=== PATIENT | female | born 1995 | race Two or more races ===

== ENCOUNTER → 2020-07-04 08:47 | Outpatient (BNVA) | payer MEDICARE, MEDICAID, SELFPAY | PROVIDERS: PCP Internal Medicine; Referring Provider Internal Medicine; Visit Provider Internal Medicine Endocrinology, Diabetes & Metabolism | DX: E28.2 Polycystic ovarian syndrome (principal); E53.8 Deficiency of other specified B group vitamins; E55.9 Vitamin D deficiency, unspecified; E66.9 Obesity, unspecified; Z68.33 Body mass index [BMI] 33.0-33.9, adult; Z79.899 Other long term (current) drug therapy; Q99.2 Fragile X chromosome | CPT/HCPCS: 99214 ==

== ENCOUNTER 2020-07-29 08:58 | Outpatient (REF) | payer MEDICARE, MEDICAID, SELFPAY ==
[2020-07-29 10:03] LABS: Anion Gap 12 (12-20); Blood Urea Nitrogen 8 mg/dL (9-16); Calcium 8.7 mg/dL (8.4-10.2); Carbon Dioxide 23 mmol/L (22-29); Chloride 107 mmol/L (96-108); Estimated Glomerular Filt Rate > 60; Phosphorus 2.9 mg/dL (2.7-4.5); Potassium 4.1 mmol/l (3.3-5.1); Sodium 138 mmol/L (135-145)
[2020-07-29 10:19] LABS: Alanine Aminotransferase 8 U/L (0-31); Albumin Level 3.9 g/dL (3.5-5.0); Alkaline Phosphatase 52 U/L (39-117); Anion Gap 13 (12-20); Aspartate Amino Transferase 16 U/L (5-31); Bilirubin Total 0.4 mg/dL (0.0-1.0); Blood Urea Nitrogen 8 mg/dL (9-16); Calcium 8.7 mg/dL (8.4-10.2); Carbon Dioxide 23 mmol/L (22-29); Chloride 107 mmol/L (96-108); Estimated Glomerular Filt Rate > 60; Glucose Random 77 mg/dL (60-115); Potassium 4.2 mmol/l (3.3-5.1); Sodium 139 mmol/L (135-145); Total Protein 6.9 g/dL (6.5-8.0)
[2020-07-29 10:25] LABS: Vitamin D 25-OH Total 22.3 ng/mL (>30)
[2020-07-29 10:34] LABS: Vitamin B12 456 pg/mL (200-900)
[2020-07-29 14:25] LABS: Renal w Reflex Lab Use Only Order verified
== END 2020-07-29 08:59 | disposition home or self-care (01) ==
LOC: HO.LAB 08:58
PROVIDERS: PCP Internal Medicine; Referring Provider Internal Medicine Endocrinology, Diabetes & Metabolism; Visit Provider Internal Medicine Nephrology
DX: E53.8 Deficiency of other specified B group vitamins (principal); E55.9 Vitamin D deficiency, unspecified; E28.2 Polycystic ovarian syndrome; E87.1 Hypo-osmolality and hyponatremia; E66.9 Obesity, unspecified; Q99.2 Fragile X chromosome
CPT/HCPCS: 80051; 80053; 82306; 82310; 82565; 82607; 84100; 84520

== ENCOUNTER 2020-09-27 07:29 | Outpatient (REF) | payer MEDICARE, MEDICAID, SELFPAY | END 2020-09-27 07:30 | disposition home or self-care (01) | LOC: HO.LAB 07:29 | PROVIDERS: Visit Provider Internal Medicine | DX: Z20.828 Contact with and (suspected) exposure to other viral communicable diseases (principal) | CPT/HCPCS: C9803; U0003 ==

== ENCOUNTER → 2021-01-02 09:47 | Outpatient (BNVA) | payer MEDICARE, MEDICAID, SELFPAY | PROVIDERS: PCP Internal Medicine; Visit Provider Internal Medicine Endocrinology, Diabetes & Metabolism | CPT/HCPCS: Q3014 ==

== ENCOUNTER 2021-03-31 09:20 | Outpatient (REF) | payer MEDICARE, MEDICAID, SELFPAY ==
[2021-03-31 10:14] LABS: Ammonia 41 umol/L (13-55)
[2021-03-31 10:31] LABS: Alanine Aminotransferase 6 U/L (0-31); Albumin Level 3.9 g/dL (3.5-5.0); Alkaline Phosphatase 61 U/L (39-117); Aspartate Amino Transferase 14 U/L (5-31); Bilirubin Direct < 0.2 mg/dL (0.0-0.5); Bilirubin Total 0.4 mg/dL (0.0-1.0); Total Protein 7.2 g/dL (6.5-8.0)
[2021-03-31 10:38] LABS: Valproate 94.8 mcg/mL (50.0-100.0)
[2021-03-31 10:52] LABS: Vitamin D 25-OH Total 32.8 ng/mL (>30)
[2021-03-31 11:00] LABS: Vitamin B12 255 pg/mL (200-900)
[2021-03-31 11:09] LABS: Alanine Aminotransferase 7 U/L (0-31); Albumin Level 3.9 g/dL (3.5-5.0); Alkaline Phosphatase 61 U/L (39-117); Anion Gap 18 (12-20); Aspartate Amino Transferase 16 U/L (5-31); Bilirubin Total 0.4 mg/dL (0.0-1.0); Blood Urea Nitrogen 12 mg/dL (9-16); Calcium 9.3 mg/dL (8.4-10.2); Carbon Dioxide 17 mmol/L (22-29); Chloride 107 mmol/L (96-108); Estimated Glomerular Filt Rate > 60; Glucose Fasting 82 mg/dL (60-99); Potassium 4.5 mmol/L (3.3-5.1); Sodium 137 mmol/L (135-145); Total Protein 7.3 g/dL (6.5-8.0)
== END 2021-03-31 09:21 | disposition home or self-care (01) ==
LOC: HO.LAB 09:20
PROVIDERS: Absent Provider General Practice; PCP Internal Medicine; Visit Provider Internal Medicine Endocrinology, Diabetes & Metabolism
DX: E53.8 Deficiency of other specified B group vitamins (principal); E28.2 Polycystic ovarian syndrome; E55.9 Vitamin D deficiency, unspecified; Z79.899 Other long term (current) drug therapy
CPT/HCPCS: 36415; 80053; 80076; 80164; 82140; 82248; 82306; 82607

== ENCOUNTER 2021-05-30 09:18 | Outpatient (REF) | payer MEDICARE, MEDICAID, SELFPAY ==
--- NOTE | ~2021-05-30 | XR_ITS ---
EXAMINATION: XR FOOT, BILATERAL CLINICAL INFORMATION: Localized edema. COMPARISON: None. TECHNIQUE: 3 views each foot. FINDINGS: Right Foot: There is no visible acute fracture, dislocation or subluxation. The joint spaces are maintained normal. Minimal dorsal distal foot soft tissue swelling The ankle mortise and subtalar joint is normal. A small retrocalcaneal enthesophyte is noted. Left Foot: There is no visible acute fracture, dislocation or subluxation. No bony erosive changes. There is moderate distal dorsal foot soft tissue swelling. XR/XR foot RT 2V IMPRESSION: Minimal dorsal distal bilateral foot soft tissue swelling. No underlying fracture or dislocation seen.
--- NOTE | ~2021-05-30 | XR_ITS ---
EXAMINATION: XR FOOT, BILATERAL CLINICAL INFORMATION: Localized edema. COMPARISON: None. TECHNIQUE: 3 views each foot. FINDINGS: Right Foot: There is no visible acute fracture, dislocation or subluxation. The joint spaces are maintained normal. Minimal dorsal distal foot soft tissue swelling The ankle mortise and subtalar joint is normal. A small retrocalcaneal enthesophyte is noted. Left Foot: There is no visible acute fracture, dislocation or subluxation. No bony erosive changes. There is moderate distal dorsal foot soft tissue swelling. XR/XR foot LT 2V IMPRESSION: Minimal dorsal distal bilateral foot soft tissue swelling. No underlying fracture or dislocation seen.
== END 2021-05-30 09:19 | disposition home or self-care (01) ==
LOC: HO.XRAY 09:18
PROVIDERS: PCP Internal Medicine; Visit Provider Internal Medicine
DX: R60.0 Localized edema (principal)
CPT/HCPCS: 73620

== ENCOUNTER → 2022-01-05 10:03 | Outpatient (BNVA) | payer MEDICARE, MEDICAID, SELFPAY | PROVIDERS: PCP Internal Medicine; Visit Provider Internal Medicine Endocrinology, Diabetes & Metabolism | DX: E28.2 Polycystic ovarian syndrome (principal); E53.8 Deficiency of other specified B group vitamins; E55.9 Vitamin D deficiency, unspecified; E66.9 Obesity, unspecified; Q99.2 Fragile X chromosome; Z68.36 Body mass index [BMI] 36.0-36.9, adult; Z79.84 Long term (current) use of oral hypoglycemic drugs; Z79.899 Other long term (current) drug therapy | CPT/HCPCS: 99212 ==

== ENCOUNTER 2022-02-01 11:52 | Outpatient (REF) | payer MEDICARE, MEDICAID, SELFPAY ==
[2022-02-01 13:40] LABS: Cholesterol 226 mg/dL; Glucose Fasting 66 mg/dL (60-99); HDL Cholesterol 38 mg/dL; LDL Cholesterol Calculated 152 mg/dl; Triglycerides 184 mg/dL
== END 2022-02-01 11:53 | disposition home or self-care (01) ==
LOC: HO.10HDL 11:52
PROVIDERS: Visit Provider Nurse Practitioner Family
DX: E78.00 Pure hypercholesterolemia, unspecified (principal); R21 Rash and other nonspecific skin eruption
CPT/HCPCS: 36415; 80061; 82947

== ENCOUNTER 2022-05-27 08:37 | Outpatient (REF) | payer MEDICARE, MEDICAID, SELFPAY ==
[2022-05-27 08:59] LABS: MANUAL DIFF FLAG NO
[2022-05-27 09:55] LABS: Basophils Absolute Auto 0.1 X10*3/uL (0.0-0.2); Basophils Percent Auto 0.8 % (0-2); Eosinophils Absolute Auto 0.2 X10*3/uL (0.0-0.4); Eosinophils Percent Auto 2.6 % (0-4); Hematocrit 41.8 % (37.0-47.0); Imm Gran Abs Auto 0.03 X10*3/uL (0.00-0.03); Imm Gran Pct Auto 0.4 % (0.0-0.4); Lymphocytes Absolute Auto 2.3 X10*3/uL (1.2-4.9); Lymphocytes Percent Auto 29.7 % (20-40); Mean Corpuscular HGB Conc 31.1 g/dl (31.0-35.0); Mean Corpuscular Hemoglobin 28.2 pg (27.0-33.0); Mean Corpuscular Volume 90.7 fL (80.0-98.0); Mean Platelet Volume 9.6 fL (9.4-12.3); Monocytes Absolute Auto 0.6 X10*3/uL (0.1-1.2); Monocytes Percent Auto 7.3 % (2-11); Neutrophils Absolute Auto 4.5 x10*3/uL (2.0-8.3); Neutrophils Percent Auto 59.2 % (45-73); Platelet Count 184 X10*3/uL (160-400); Red Blood Count 4.61 X10*6/uL (4.20-5.50); Red Cell Distribution Width 13.6 % (11.0-16.0); White Blood Count 7.7 X10*3/uL (4.8-10.8)
[2022-05-27 10:48] LABS: Vitamin D 25-OH Total 20.6 ng/mL (>30)
[2022-05-27 10:52] LABS: Alanine Aminotransferase 8 U/L (0-31); Albumin Level 3.6 g/dL (3.5-5.0); Alkaline Phosphatase 59 U/L (39-117); Anion Gap 15 (12-20); Aspartate Amino Transferase 17 U/L (5-31); Bilirubin Total < 0.2 mg/dL (0.0-1.0); Blood Urea Nitrogen 10 mg/dL (9-16); Calcium 8.9 mg/dL (8.4-10.2); Carbon Dioxide 22 mmol/L (22-29); Chloride 108 mmol/L (96-108); Cholesterol 148 mg/dL; Estimated Glomerular Filt Rate > 60; Glucose Fasting 85 mg/dL (60-99); HDL Cholesterol 40 mg/dL; LDL Cholesterol Calculated 77 mg/dl; Potassium 3.9 mmol/L (3.3-5.1); Sodium 141 mmol/L (135-145); Total Protein 6.4 g/dL (6.5-8.0); Triglycerides 158 mg/dL
[2022-05-27 11:00] LABS: Folate 7.5 ng/mL (> or = 4.0); Vitamin B12 455 pg/mL (200-900)
[2022-06-01 12:56] LABS: NT-proBNP 443 pg/mL
== END 2022-05-27 08:38 | disposition home or self-care (01) ==
LOC: HO.LAB 08:37
PROVIDERS: PCP Internal Medicine; Visit Provider Internal Medicine
DX: E66.9 Obesity, unspecified (principal); E55.9 Vitamin D deficiency, unspecified; E53.8 Deficiency of other specified B group vitamins; R60.0 Localized edema; E78.5 Hyperlipidemia, unspecified; D64.9 Anemia, unspecified
CPT/HCPCS: 36415; 80053; 80061; 82306; 82607; 82746; 83880; 85025

== ENCOUNTER → 2022-08-25 12:50 | Outpatient (BNVA) | payer MEDICARE, MEDICAID, SELFPAY | PROVIDERS: PCP Internal Medicine; Referring Provider Internal Medicine; Visit Provider Internal Medicine | DX: R79.89 Other specified abnormal findings of blood chemistry (principal) | CPT/HCPCS: 93005; 99202 ==

== ENCOUNTER → 2022-09-01 09:24 | Outpatient (REF) | payer MEDICARE, MEDICAID, SELFPAY ==
--- NOTE | 2022-09-01 09:33 | CA_ITS ---
Transthoracic Echocardiogram Patient (Last, First, Middle): Catie Encarnacion, Gender: Female Date of : 1995 Age: 27 Procedure Date: 09/01/2022 Procedure Type: Transthoracic Echocardiogram Location: OP Height: 154.94 cm Weight: 90.72 kg BSA: 1.89 m2 Heart Rate: bpm BP: 110 / 75 mmHg Racing Secretary: TO Referring MD: Ramos Marino MD Accuracy Expert: Pawel La MD Symptoms: R79.89 - Other specified abnormal findings of blood chemistry Study Quality: Technically Difficult ECG Rhythm: Sinus Conclusions: - Essentially normal study Findings Left Ventricle Normal left ventricular size, thickness, and systolic function. The visually estimated ejection fraction is between 60-65%. Regional wall motion abnormalities can not be excluded due to suboptimal endocardial definition. Diastolic function is normal for age. Right Ventricle Normal right ventricular cavity size and systolic function. Atria Both atria are normal in size. Interatrial shunt cannot be excluded. Aortic Valve The aortic valve was not well visualized. There is no aortic valve stenosis. There is no aortic valve regurgitation. Mitral Valve Likely normal mitral valve structure and function. There is trace mitral valve regurgitation. There is no mitral valve stenosis. Pulmonic Valve The pulmonic valve was not well visualized. Tricuspid Valve Likely normal tricuspid valve structure and function. There is trace tricuspid valve regurgitation. The right ventricular systolic pressure is normal. The right ventricular systolic pressure is 22 mmHg. Normal right atrial pressure. There is no evidence of pulmonary hypertension. Great Vessels All visible segments of the aorta are normal in size. The pulmonary artery was not well visualized. Venous The inferior vena cava is normal in size and collapses greater than 50% with inspiration. Pericardium/Pleural There is no evidence of pericardial effusion. Prior Study Comparison No previous study in last 5 years for comparison Measurements 2D Linear Measurements IVSd: 0.91 0.6-0.9/0.6-1.0 cm LVIDd: 4.47 3.9-5.3/4.2-5.9 cm LVIDd Index: 2.37 2.4-3.2/2.2-3.1 cm/m2 LVIDs: 2.98 2.0-3.6 cm LVPWd: 0.68 0.7-1.1 cm LA Diam: 2.90 2.7-3.8/3.0-4.0 cm LAIDs Index: 1.53 1.5-2.3 cm/m2 LV Mass: 138.56 67-162/88-224 g LV Mass Index: 73.31 43-95/49-115 g/m2 LVOT Diam: 2.00 3.0+(-)1.3 cm 2D Systolic Function EF 4C: 61.40 >55% EF 2C: 58.60 >55% EF BiP: 60.10 >55% Mitral Valve E'Lateral: 17.60 E'Medial: 13.20 Aortic Valve AoV Pk Bret: 1.23 AoV Mn Bret: 0.87 AoV VTI: 0.26 AoV Pk Grad: 6.00 Aov Mn Grad: 3.00 KINZA Cont.VTI: 2.44 LVOT LVOT Pk Bret: 0.95 LVOT Mn Bret: 0.71 LVOT VTI: 0.20 LVOT Pk Grad: 4.00 LVOT Mn Grad: 2.00 LVOT Diam: 2.00 LVOT Area: 3.14 Diastolic Function E'Medial: 13.20 E' Laterial: 17.60 Right Ventricle TAPSE (mm): 18.00 TVS' Bret: 10.80 Tricuspid Valve TR Pk Bret: 2.19 TR Pk Grad: 19.00 RA Press: 3.00 RVSP: 22.00 Great Vessels Aorta Sinus of Valsalva: 3.09 2.0-3.5 cm Ao Asc: 3.00 2.1-3.4 cm Updated in Other Vendor System with Status of Final Pawel La MD electronically signed on 09/03/2022 6:43:00 PM with status of Final
[2022-09-01 11:15] LABS: Alanine Aminotransferase 12 U/L (0-31); Albumin Level 3.9 g/dL (3.5-5.0); Alkaline Phosphatase 74 U/L (39-117); Aspartate Amino Transferase 17 U/L (5-31); Bilirubin Direct < 0.2 mg/dL (0.0-0.5); Bilirubin Total 0.2 mg/dL (0.0-1.0); Total Protein 6.9 g/dL (6.5-8.0)
[2022-09-01 11:26] LABS: Valproate 108.3 mcg/mL (50.0-100.0)
== END ==
LOC: HO.CARD 09:24
PROVIDERS: General Practice; PCP Internal Medicine; Visit Provider Internal Medicine
DX: R79.89 Other specified abnormal findings of blood chemistry (principal)
CPT/HCPCS: 36415; 80076; 80164; 93306

== ENCOUNTER 2022-11-19 09:02 | Outpatient (REF) | payer MEDICARE, MEDICAID, SELFPAY ==
[2022-11-19 11:03] LABS: Valproate 77.9 mcg/mL (50.0-100.0)
== END 2022-11-19 09:03 | disposition home or self-care (01) ==
LOC: HO.LAB 09:02
PROVIDERS: PCP Internal Medicine; Visit Provider General Practice
DX: Z79.899 Other long term (current) drug therapy (principal)
CPT/HCPCS: 36415; 80164

== ENCOUNTER → 2023-01-04 14:10 | Outpatient (BNVA) | payer MEDICARE, MEDICAID, SELFPAY | PROVIDERS: PCP Internal Medicine; Visit Provider Internal Medicine Endocrinology, Diabetes & Metabolism | DX: E28.2 Polycystic ovarian syndrome (principal) | CPT/HCPCS: 99212 ==

== ENCOUNTER 2023-06-28 08:25 | Outpatient (REF) | payer MEDICARE, MEDICAID, SELFPAY ==
[2023-06-28 09:12] LABS: MANUAL DIFF FLAG NO
[2023-06-28 09:23] LABS: Basophils Absolute Auto 0.1 X10*3/uL (0.0-0.2); Basophils Percent Auto 0.6 % (0-2); Eosinophils Absolute Auto 0.1 X10*3/uL (0.0-0.4); Eosinophils Percent Auto 0.8 % (0-4); Hematocrit 41.3 % (37.0-47.0); Imm Gran Abs Auto 0.04 X10*3/uL (0.00-0.03); Imm Gran Pct Auto 0.4 % (0.0-0.4); Lymphocytes Absolute Auto 2.8 X10*3/uL (1.2-4.9); Lymphocytes Percent Auto 28.7 % (20-40); Mean Corpuscular HGB Conc 31.5 g/dl (31.0-35.0); Mean Corpuscular Hemoglobin 28.6 pg (27.0-33.0); Mean Corpuscular Volume 90.8 fL (80.0-98.0); Mean Platelet Volume 9.8 fL (9.4-12.3); Monocytes Absolute Auto 0.6 X10*3/uL (0.1-1.2); Monocytes Percent Auto 6.7 % (2-11); Neutrophils Percent Auto 62.8 % (45-73); Platelet Count 223 X10*3/uL (160-400); Red Blood Count 4.55 X10*6/uL (4.20-5.50); Red Cell Distribution Width 14.3 % (11.0-16.0); White Blood Count 9.6 X10*3/uL (4.8-10.8)
[2023-06-28 10:06] LABS: Alanine Aminotransferase 9 U/L (0-31); Albumin Level 3.8 g/dL (3.5-5.0); Alkaline Phosphatase 56 U/L (39-117); Anion Gap 11 (12-20); Aspartate Amino Transferase 14 U/L (5-31); Bilirubin Total 0.2 mg/dL (0.0-1.0); Blood Urea Nitrogen 10 mg/dL (9-16); Calcium 9.3 mg/dL (8.4-10.2); Carbon Dioxide 22 mmol/L (22-29); Chloride 112 mmol/L (96-108); Cholesterol 180 mg/dL (<200); Estimated Glomerular Filt Rate > 60; Glucose Fasting 93 mg/dL (60-99); HDL Cholesterol 32 mg/dL (>40); LDL Cholesterol Calculated 112 mg/dL (<100); Potassium 4.2 mmol/L (3.3-5.1); Sodium 141 mmol/L (135-145); Triglycerides 184 mg/dL (<150)
[2023-06-28 10:10] LABS: Thyroid Stimulating Hormone 1.78 uIU/mL (0.32-4.0); Vitamin D 25-OH Total 20.3 ng/mL (>30)
[2023-06-28 10:19] LABS: Folate 10.2 ng/mL (> or = 4.0); Vitamin B12 415 pg/mL (200-900)
== END 2023-06-28 08:26 | disposition home or self-care (01) ==
LOC: HO.LAB 08:25
PROVIDERS: PCP Internal Medicine; Visit Provider Internal Medicine
DX: D64.9 Anemia, unspecified (principal); E66.9 Obesity, unspecified; E78.5 Hyperlipidemia, unspecified; E53.8 Deficiency of other specified B group vitamins; E55.9 Vitamin D deficiency, unspecified
CPT/HCPCS: 36415; 80053; 80061; 82306; 82607; 82746; 84443; 85025

== ENCOUNTER 2023-07-06 09:23 | Outpatient (AMB) | payer MEDICARE, MEDICAID, SELFPAY ==
--- NOTE | 2023-07-06 09:26 | MHC.PC.OV ---
Vital Signs 07/06/23 09:28 Height 5 ft 2 in Weight 187 lb BMI 34.2 BP 108/72 Blood Pressure Location Lt brachial Position Sitting Pulse 74 Pulse Source Pulse Oximeter Pulse Oximetry (%) 97 Oxygen Delivery Method Room Air Intake Visit Reasons: Annual Exam Intake Note: Patient here for an annual physical exam Sequins Stringer Required: No Accompanied by: Mother Allergies No Known Allergies Allergy (Verified 07/06/23 09:27) Medication List - Last Reconciled 07/06/23 by Ivelisse Stout MD albuterol sulfate 2.5 mg (3 mL) inhalation Q4-6H PRN 30 days alcohol swabs (Alcohol Prep Pads) 1 pad topical DAILY 90 days atorvastatin 20 mg PO BEDTIME 90 days benzoyl peroxide 5% 1 appl topical DAILY calcium carbonate 500 mg PO BID cetirizine 10 mg PO BID cholecalciferol (vitamin D3) 125 mcg PO QWEEK 90 days clonidine HCl mg PO cyanocobalamin (vitamin B-12) 1,000 mcg PO DAILY 90 days divalproex ER 500 mg PO DAILY divalproex ER 250 mg PO DAILY fluticasone propionate 50 mcg/actuation 1 spray intranasal DAILY hydroxyzine HCl 50 mg PO BEDTIME metformin 500 mg PO BID nebulizers (AeroEclipse II Nebulizer) As directed omeprazole 20 mg PO DAILY quetiapine 50 mg PO BEDTIME sennosides (senna) 8.6 mg PO BEDTIME PRN 90 days topiramate 100 mg PO BID Tobacco use date assessed: 01/04/23 Dental Screening Dental Screen Date: 07/06/23 Did you have a dental visit in the last 12 months?: Yes Did you have a dental problem in the last 6 months where you did not have access to dental care?: No Was dental information given to patient?: Patient has dentist HPI HPI Comments History of Present Illness Details This is a 28-year-old female with fragile X syndrome and mood disorder that comes accompanied by cousin and elevator mechanic which is adoptive mother for her physical exam. Patient is nonverbal with developmental delay but can follow simple commands. No acute complaints. Labs were discussed. Mood disorder stable with divalproex. [facility] Medical History Edema of right foot Edema of left foot Obesity (BMI 30-39.9) Asthma Fragile-X syndrome B12 deficiency Vitamin D deficiency PCOS (polycystic ovarian syndrome) Surgical History History of ear surgery Family History Mother Stomach cancer Father AA (alcohol abuse) Social History Housing: Apartment Alcohol intake: never Patient Tobacco Use Status: Never used Tobacco e-Cigarette/Vaping Use: Never Used Second Hand Smoke Exposure: No service: No Current occupational status: disabled Cognitive needs: Yes Hearing needs: No Vision needs: Yes Questionnaire Thrive Questionnaire Date Thrive assessed: 01/04/23 OSCAR-7 AMB Questionnaire OSCAR-7 Date OSCAR - 7 assessed: 01/04/23 Source: Developed by Drs. Willard Henry, Vivian Cummins, Josue Jane and colleagues, with an educational greg from [employer]. Review of Systems Const All systems reviewed & are unremarkable except as noted in HPI and below Eyes Reports no additional complaints, Denies change in vision and Denies other visual disturbances Card Denies chest pain at rest, Denies chest pain with activity, Denies edema, Denies irregular heart rhythm, Denies claudication, Denies dyspnea, Denies dyspnea on exertion, Denies orthopnea, Denies paroxysmal nocturnal dyspnea and Denies slow heart rate Resp Denies cough, Denies dyspnea and Denies dyspnea on exertion GI Denies abdominal pain, Denies change in bowel habits, Denies excessive flatus, Denies nausea and Denies vomiting Denies urinary incontinence, Denies urinary hesitancy and Denies urinary urgency Musc Denies abnormal gait, Denies atrophy, Denies deformity and Denies limited range of motion Skin/Breast Denies bleeding lesions, Denies changing lesions and Denies rash Neuro Denies abnormal gait and Denies lack of coordination Physical exam (Primary Care) Vital Signs: Last Vital Signs Pulse 74 07/06/23 09:28 BP 108/72 07/06/23 09:28 Pulse Ox 97 07/06/23 09:28 Oxygen Delivery Method Room Air 07/06/23 09:28 BMI result Body Mass Index 34.2 Tobacco/Smoking Status: Tobacco use Status Tobacco use date assessed 01/04/23 07/06/23 09:31 Patient Tobacco Use Status Never used Tobacco 07/06/23 09:31 e-Cigarette/Vaping Use Never Used 07/06/23 09:31 Thrive Assessment: Date of Thrive Assessment Date Thrive assessed 01/04/23 07/06/23 09:31 [facility] Head: Yes normal to inspection, Yes normocephalic and Yes atraumatic Ears: external ears normal Mouth: lip normal Eyes General: appearance normal, both eyes and all related structures Eyelids: Yes eyelids normal Conjunctivae: conjunctivae normal Neck Neck: Yes normal visual inspection and Yes supple Resp Effort & Inspection: normal respiratory effort Auscultation: clear to auscultation bilaterally Cardio Jugular venous distension: no JVD Rate: regular rate Rhythm: regular rhythm Heart sounds: S1 normal heart sound present and S2 normal heart sound present GI Inspection: Yes normal to inspection Palpation (GI): Soft to palpation and nontender Auscultation: normal bowel sounds Skin General skin exam: no rashes or lesions noted Neuro General: no focal motor deficits Extrem General: Yes full ROM Psych Appearance: grossly normal Office Procedures Flu Questionnaire Does the patient have a severe egg allergy?: No Does the patient have severe life threatening allergies?: No Does the patient have a fever or illness today?: No Has the patient ever had Guillain-[place] Syndrome?: No Has the patient ever had any past reaction to a flu shot?: No Immunizations flu vacc [id number] 6mos up(PF) 60 mcg(15 mcgx4)/0.5 mL IM syringe Performing Provider: Ivelisse Stout MD Performing Location: [facility] Administered by: MARIA ISABEL De Oliveira on 07/06/23 10:01 Dose Route Admin Location Dispensed Lot Number Expiration Date NDC Balance Clerk 0.5 mL IM Right Deltoid 0.5 mL [id number] 03/25/24 85982-276-81 [email or web address] VIS Given Date VIS Provided VIS Publication Date 07/06/23 Single Vaccine 21 Eligibility Eligibility Date Funding Source Not [facility] Eligible 07/06/23 Private Assessment and Plan Assessment & Plan (1) Physical exam: Code(s): Z00.00 - Encounter for general adult medical examination without abnormal findings Plan: Repeat in a year. (2) Mood disorder: Code(s): F39 - Unspecified mood [affective] disorder Plan: Continue divalproex. Orders: Orders Influenza [id number] Immunization Today Z23 - Encounter for immunization Medications: New melatonin 10 mg PO BEDTIME PRN 30 tabs 1RF sleep 30 days lactulose 10 grams (15 mL) PO BEDTIME PRN 237 mL 1RF constipation 30 days Coding Level of Care Code Est Pt Prev Care 18-39y(89783) Diagnoses Physical exam Z00.00 Mood disorder F39 Time Spent (min) 32
[2023-07-06 09:28] VITALS: BP 108/72; PULSE 74; O2SAT 97; BMI 34.2
== END 2023-07-06 10:01 | disposition home or self-care (01) ==
PROVIDERS: Visit Provider Internal Medicine
DX: Z00.00 Encounter for general adult medical examination without abnormal findings (principal); F39 Unspecified mood [affective] disorder; Z23 Encounter for immunization
CPT/HCPCS: 90471; 90686; 99395

== ENCOUNTER 2024-01-20 08:50 | Outpatient (REF) | payer MEDICARE, MEDICAID, SELFPAY ==
[2024-01-20 10:14] LABS: Alanine Aminotransferase 11 U/L (0-31); Albumin Level 4.1 g/dL (3.5-5.0); Alkaline Phosphatase 72 U/L (39-117); Aspartate Amino Transferase 15 U/L (5-31); Bilirubin Direct < 0.2 mg/dL (0.0-0.5); Bilirubin Total 0.2 mg/dL (0.0-1.0); Total Protein 7.6 g/dL (6.5-8.0)
== END 2024-01-20 08:51 | disposition home or self-care (01) ==
LOC: HO.LAB 08:50
PROVIDERS: Visit Provider General Practice
DX: F06.8 Other specified mental disorders due to known physiological condition (principal); Z79.899 Other long term (current) drug therapy
CPT/HCPCS: 36415; 80076; 80164

== ENCOUNTER 2024-07-10 08:36 | Outpatient (AMB) | payer MEDICARE, MEDICAID, SELFPAY ==
--- NOTE | 2024-07-10 08:41 | A.OFFPC_ITS ---
Vital Signs 07/10/24 08:42 Height 5 ft 2 in Weight 182 lb BMI 33.3 BP 110/78 Blood Pressure Location Lt brachial Position Sitting Pulse 93 Pulse Source Pulse Oximeter Pulse Oximetry (%) 98 Oxygen Delivery Method Room Air Intake Visit Reasons: annual exam Refrigeration Mechanic Required: No Accompanied by: Self / Same As Patient Allergies No Known Allergies Allergy (Verified 07/06/23 09:27) Medication List - Last Reconciled 07/10/24 by Ivelisse Stout MD albuterol sulfate 2.5 mg (3 mL) inhalation Q4-6H PRN 30 days alcohol swabs (Alcohol Prep Pads) 1 pad topical DAILY 90 days atorvastatin 20 mg PO BEDTIME 90 days benzoyl peroxide 5% 1 appl topical DAILY calcium carbonate 500 mg PO BID cetirizine 10 mg PO BID cholecalciferol (vitamin D3) 125 mcg PO QWEEK 90 days clonidine HCl mg PO cyanocobalamin (vitamin B-12) 1,000 mcg PO DAILY 90 days divalproex ER 500 mg PO DAILY divalproex ER 250 mg PO DAILY fluticasone propionate 50 mcg/actuation 1 spray intranasal DAILY hydroxyzine HCl 50 mg PO BEDTIME lactulose 10 grams (15 mL) PO BEDTIME PRN 30 days metformin 500 mg PO BID nebulizers (AeroEclipse II Nebulizer) As directed omeprazole 20 mg PO DAILY sennosides (senna) 8.6 mg PO BEDTIME PRN 90 days topiramate 100 mg PO BID Tobacco use date assessed: 07/10/24 Dental Screening Dental Screen Date: 07/10/24 Did you have a dental visit in the last 12 months?: Yes Did you have a dental problem in the last 6 months where you did not have access to dental care?: No Was dental information given to patient?: Patient has dentist HPI HPI Comments History of Present Illness Details This is a 29-year-old female with mood disorder, mentally challenged and nonverbal that comes accompanied by solar installation helper which is her adoptive mother for her physical exam. Mood disorder follow by Psychiatry and stable with Clive. Operating Room Tech declined Pap smear due to her mental state. She is obese with a BMI of 33.3 and was advised to do diet and exercise to reach BMI goal less than 30. No acute complaints. [facility] Medical History (Updated 07/10/24 @ 10:51 by Ivelisse Stout MD) Edema of right foot Edema of left foot Obesity (BMI 30-39.9) Asthma Fragile-X syndrome B12 deficiency Vitamin D deficiency PCOS (polycystic ovarian syndrome) Surgical History History of ear surgery Family History Mother Stomach cancer Father AA (alcohol abuse) Social History Housing: Apartment Alcohol intake: never Patient Tobacco Use Status: Never used Tobacco e-Cigarette/Vaping Use: Never Used Second Hand Smoke Exposure: No service: No Current occupational status: disabled Cognitive needs: Yes Hearing needs: No Vision needs: Yes Questionnaire PHQ-9 Over the last 2 weeks, how often have you been bothered by any of the following problems? 1. Little interest or pleasure in doing things: not at all 2. Feeling down, depressed, or hopeless: not at all 3. Trouble falling or staying asleep, or sleeping too much: not at all 4. Feeling tired or having little energy: not at all 5. Poor appetite or overeating: not at all 6. Feeling bad about yourself - or that you are a failure or have let yourself or your family down: not at all 7. Trouble concentrating on things, such as reading the newspaper or watching television: not at all 8. Moving or speaking so slowly that other people could have noticed. Or the opposite - being so fidgety or restless that you have been moving around a lot more than usual: not at all 9. Thoughts that you would be better off or of hurting yourself in some way: not at all Total score: 0 Depression Screening Interpretation: Negative Depression Screening Done: Yes 09727 - PHQ-9 Billing: Yes Source: Developed by Drs. Willard Henry, Vivian Cummins, Josue Jane and colleagues, with an educational greg from [employer]. Thrive Questionnaire Date Thrive assessed: 01/04/23 I am a: Patient What is your living situation today?: I choose not to answer this question Within the past 12 months, did the food you bought not last and you didn't have the money to get more?: I choose not to answer this question Within the past 12 months, did you worry whether your food would run out before you got money to buy more?: I choose not to answer this question Do you have trouble paying for medicines?: I choose not to answer this question Do you have trouble getting transportation to medical appointments?: I choose not to answer this question Do you have trouble paying your heating and electricity bill?: I choose not to answer this question Do you have trouble taking care of your child, family member or friend?: I choose not to answer this question Do you have trouble with day-to-day activities such as bathing, preparing meals, shopping, managing finances, etc.?: I choose not to answer this question Are you currently unemployed and looking for a job?: I choose not to answer this question Are you interested in more education?: I choose not to answer this question Please select the resources that you would like help with: None Currently or been in a relationship where the following occur: I choose not to answer THRIVE Score: 0 AUDIT C Alcohol Use Questionnaire (AUDIT-C) 1. How often do you have a drink containing alcohol?: Never Total Score: 0 Score Reviewed/Action Taken: No OSCAR-7 AMB Questionnaire OSCAR-7 Date OSCAR - 7 assessed: 07/10/24 Feeling nervous, anxious, or on edge: 0 = Not at all Not being able to stop or control worryin = Not at all Worrying too much about different things: 0 = Not at all Trouble relaxin = Not at all Being so restless that it is hard to sit still: 0 = Not at all Becoming easily annoyed or irritable: 0 = Not at all Feeling afraid as if something awful might happen: 0 = Not at all Total OSCAR-7 score (0-4 normal; 5-9 mild; 10-14 moderate; 15-21 severe): 0 Source: Developed by Drs. Willard Henry, Vivian Cummins, Josue Jane and colleagues, with an educational greg from [employer]. OSCAR-7 Assessment Billing OSCAR-7 Assessment Tool: OSCAR-7 Assessment 90820 Review of Systems Const All systems reviewed & are unremarkable except as noted in HPI and below Card Denies chest pain at rest, Denies chest pain with activity, Denies edema, Denies irregular heart rhythm, Denies claudication, Denies dyspnea, Denies dyspnea on exertion, Denies orthopnea, Denies paroxysmal nocturnal dyspnea and Denies slow heart rate Resp Denies cough, Denies dyspnea and Denies dyspnea on exertion Physical exam (Primary Care) Vital Signs: Last Vital Signs Pulse 93 07/10/24 08:42 BP 110/78 07/10/24 08:42 Pulse Ox 98 07/10/24 08:42 Oxygen Delivery Method Room Air 07/10/24 08:42 BMI result Body Mass Index 33.3 BMI Assessment/Plan discussion: High BMI High, discussed plan: lifestyle, weight reduction, dietary and physical activity Tobacco/Smoking Status: Tobacco use Status Tobacco use date assessed 07/10/24 07/10/24 08:49 Patient Tobacco Use Status Never used Tobacco 07/10/24 08:49 e-Cigarette/Vaping Use Never Used 07/10/24 08:49 PHQ-9: PHQ-9 Score PHQ-9: Total score 0 07/10/24 10:43 Depression Screening Interpretation: Negative Thrive Assessment: Date of Thrive Assessment Date Thrive assessed 01/04/23 07/10/24 08:49 Currently or been in a relationship where the following occur: I choose not to answer [facility] Head: Yes normal to inspection, Yes normocephalic and Yes atraumatic Ears: external ears normal Eyes General: appearance normal, both eyes and all related structures Eyelids: Yes eyelids normal Conjunctivae: conjunctivae normal Neck Neck: Yes normal visual inspection and Yes supple Resp Effort & Inspection: normal respiratory effort Auscultation: clear to auscultation bilaterally Cardio Jugular venous distension: no JVD Rate: regular rate Rhythm: regular rhythm Heart sounds: S1 normal heart sound present and S2 normal heart sound present GI Inspection: Yes normal to inspection Palpation (GI): Soft to palpation and nontender Auscultation: normal bowel sounds Skin General skin exam: no rashes or lesions noted Neuro General: no focal motor deficits Extrem General: Yes full ROM Psych Appearance: grossly normal Office Procedures Flu Questionnaire Does the patient have a severe egg allergy?: No Does the patient have severe life threatening allergies?: No Does the patient have a fever or illness today?: No Has the patient ever had Guillain-[place] Syndrome?: No Has the patient ever had any past reaction to a flu shot?: No Results AMB Hemoglobin A1c AMB Hemoglobin A1c 5.0 % Last Edit by MARIA ISABEL Swan on 07/10/24 08:52 Immunizations Fluarix Triv [id number] (PF) 45 mcg (15 mcg x 3)/0.5 mL IM syringe Performing Provider: Ivelisse Stout MD [facility] Administered by: AKASH Howard on 07/10/24 09:10 Dose Route Admin Location Dispensed Lot Number Expiration Date NDC Gas Plant Operator 0.5 mL IM Left Deltoid 0.5 mL [id number] 03/25/25 [id number] [employer] VIS Given Date VIS Provided VIS Publication Date 07/10/24 Single Vaccine 21 Eligibility Eligibility Date Funding Source Not [facility]F Eligible 07/10/24 Private Results Reviewed Results Reviewed: Laboratory Last Values Hgb A1c (Clinic) 5.0 % (4.0-6.0) 07/10/24 08:52 Coding Level of Care Code Est Pt Prev Care 18-39y(15588) Diagnoses Physical exam Z00.00 Mood disorder F39 Additional Codes OSCAR-7 Assessment Billing - OSCAR-7 Assessment Tool: OSCAR-7 Assessment 47765 ([id number]) Time Spent (min) 30 Assessment & Plan Assessment & Plan (1) Physical exam: Code(s): Z00.00 - Encounter for general adult medical examination without abnormal findings Category: Medical Plan: Repeat in a year. (2) Mood disorder: Code(s): F39 - Unspecified mood [affective] disorder Category: Medical Plan: Continue Depakote. Follow-up with psychiatry. Orders: Orders AMB Hemoglobin A1c Today Z13.9 - Encounter for screening, unspecified Lipid Panel Today E78.5 - Hyperlipidemia, unspecified NT-proBNP Today R79.89 - Other specified abnormal findings of blood chemistry Influenza [id number] Immunization Today Z23 - Encounter for immunization Vitamin B12 and Folate Today E53.8 - Deficiency of other specified B group vitamins Vitamin D 25-OH Total Today E55.9 - Vitamin D deficiency, unspecified Comprehensive [place]. Panel Fast Today E78.00 - Pure hypercholesterolemia, unspecified CA echo transthoracic complete Today R79.89 - Other specified abnormal findings of blood chemistry Medications: Changed From metformin 500 mg PO BID 60 tabs 6RF E28.2 - Polycystic ovarian syndrome To metformin 500 mg PO DAILY 90 tabs 3RF 90 days E28.2 - Polycystic ovarian syndrome From cetirizine 10 mg PO BID To cetirizine 10 mg PO DAILY PRN 90 tabs 0RF allergy symptoms 90 days From calcium carbonate 500 mg PO BID To calcium carbonate 500 mg PO BID 180 tabs 1RF 90 days Refilled omeprazole 20 mg PO DAILY 90 caps 2RF sennosides (senna) 8.6 mg PO BEDTIME PRN 90 tabs 0RF constipation 90 days cholecalciferol (vitamin D3) 125 mcg PO QWEEK 13 caps 1RF 90 days cyanocobalamin (vitamin B-12) 1,000 mcg PO DAILY 90 tabs 1RF 90 days atorvastatin 20 mg PO BEDTIME 90 tabs 0RF 90 days
[2024-07-10 08:42] VITALS: BP 110/78; PULSE 93; O2SAT 98; BMI 33.3
== END 2024-07-10 09:09 | disposition home or self-care (01) ==
PROVIDERS: PCP Internal Medicine; Visit Provider Internal Medicine
DX: Z00.00 Encounter for general adult medical examination without abnormal findings (principal); F39 Unspecified mood [affective] disorder

== ENCOUNTER → 2024-07-10 08:36 | Outpatient (BNVA) | payer MEDICARE, MEDICAID, SELFPAY | PROVIDERS: PCP Internal Medicine; Visit Provider Internal Medicine | DX: Z00.00 Encounter for general adult medical examination without abnormal findings (principal); F39 Unspecified mood [affective] disorder | CPT/HCPCS: 83036; 90471; 90656; 96127; 99395 ==

== ENCOUNTER 2024-07-10 09:22 | Outpatient (REF) | payer MEDICARE, MEDICAID, SELFPAY ==
[2024-07-10 11:46] LABS: Alanine Aminotransferase 8 U/L (0-31); Alkaline Phosphatase 53 U/L (39-117); Anion Gap 11 (12-20); Aspartate Amino Transferase 14 U/L (5-31); Bilirubin Total 0.3 mg/dL (0.0-1.0); Blood Urea Nitrogen 5 mg/dL (9-16); Calcium 9.5 mg/dL (8.4-10.2); Carbon Dioxide 27 mmol/L (22-29); Chloride 104 mmol/L (96-108); Cholesterol 201 mg/dL (<200); Estimated Glomerular Filt Rate > 60; Glucose Fasting 74 mg/dL (60-99); HDL Cholesterol 37 mg/dL (>40); LDL Cholesterol Calculated 137 mg/dL (<100); Potassium 4.2 mmol/L (3.3-5.1); Sodium 138 mmol/L (135-145); Total Protein 7.4 g/dL (6.5-8.0); Triglycerides 136 mg/dL (<150); Vitamin D 25-OH Total 18.9 ng/mL (>30)
[2024-07-10 12:04] LABS: Folate 11.1 ng/mL (> or = 4.0); Vitamin B12 311 pg/mL (200-900)
[2024-07-14 14:34] LABS: NT-proBNP 196 pg/mL (<125)
== END 2024-07-10 09:23 | disposition home or self-care (01) ==
LOC: HO.LAB 09:22
PROVIDERS: Visit Provider Internal Medicine
DX: Z00.01 Encounter for general adult medical examination with abnormal findings (principal); Z23 Encounter for immunization; F39 Unspecified mood [affective] disorder; R79.89 Other specified abnormal findings of blood chemistry; E78.5 Hyperlipidemia, unspecified; E78.00 Pure hypercholesterolemia, unspecified; E55.9 Vitamin D deficiency, unspecified; E53.8 Deficiency of other specified B group vitamins
CPT/HCPCS: 36415; 80053; 80061; 82306; 82607; 82746; 83036; 83880; 90471; 90656; 96127; 99395

== ENCOUNTER → 2024-09-05 09:43 | Outpatient (REF) | payer MEDICARE, MEDICAID, SELFPAY ==
--- NOTE | 2024-09-05 09:47 | CA_ITS ---
Transthoracic Echocardiogram Patient (Last, First, Middle): Catie Encarnacion, Gender: Female Date of : 1995 Age: 29 Procedure Date: 09/05/2024 Procedure Type: Transthoracic Echocardiogram Location: OP Height: 154.94 cm Weight: 84.37 kg BSA: 1.83 m2 Heart Rate: bpm BP: 110 / 78 mmHg Quarantine Inspector: MARTA Hagan MD: Ivelisse Stout MD Funding Specialist: Pawel La MD Symptoms: R79.89 - Other specified abnormal findings of blood chemistry, R/O CHF Study Quality: Technically Difficult ECG Rhythm: Sinus tachycardia Conclusions: - Essentially normal study Findings Left Ventricle Normal left ventricular size, thickness, and systolic function. The visually estimated ejection fraction is between 55-60%. Regional wall motion abnormalities can not be excluded due to suboptimal endocardial definition. Spectral Doppler is indicative of a normal filling pattern. Right Ventricle Normal right ventricular cavity size and systolic function. Atria The left atrium is normal in size. Interatrial shunt cannot be excluded. The right atrium was not well visualized. Aortic Valve The aortic valve structure and function is likely normal. There is no aortic valve stenosis. There is no aortic valve regurgitation. Mitral Valve Likely normal mitral valve structure and function. There is trace mitral valve regurgitation. There is no mitral valve stenosis. Pulmonic Valve The pulmonic valve was not well visualized. Tricuspid Valve Likely normal tricuspid valve structure and function. There is trace tricuspid valve regurgitation. The right ventricular systolic pressure is normal. The right ventricular systolic pressure is 24 mmHg. Normal right atrial pressure. There is no evidence of pulmonary hypertension. Great Vessels The aorta was not well visualized. The pulmonary artery was not well visualized. There is no dilatation of the ascending aorta measuring 2.80 cm. Venous The inferior vena cava is normal in size and collapses greater than 50% with inspiration. Pericardium/Pleural There is no evidence of pericardial effusion. Measurements 2D Linear Measurements IVSd: 0.85 0.6-0.9/0.6-1.0 cm LVIDd: 4.33 3.9-5.3/4.2-5.9 cm LVIDd Index: 2.37 2.4-3.2/2.2-3.1 cm/m2 LVIDs: 3.04 2.0-3.6 cm LVPWd: 0.81 0.7-1.1 cm Ao Root: 2.80 2.1-3.5 cm LA Diam: 3.50 2.7-3.8/3.0-4.0 cm LAIDs Index: 1.91 1.5-2.3 cm/m2 LV Mass: 138.86 67-162/88-224 g LV Mass Index: 75.88 43-95/49-115 g/m2 LVOT Diam: 2.00 3.0+(-)1.3 cm 2D Systolic Function EF 4C: 52.80 >55% EF 2C: 66.60 >55% EF BiP: 60.00 >55% Mitral Valve MV Pk E: 0.93 MV PK A: 0.67 MV Decel Time: 143.00 E/A: 1.40 E'Lateral: 15.40 E'Medial: 10.00 E/E' Med: 9.30 E/E' Lat: 6.00 PHT: 42.00 MVA PHT: 5.24 Decel [place]: 6.52 Aortic Valve AoV Pk Bret: 1.35 AoV Mn Bret: 0.92 AoV VTI: 0.26 AoV Pk Grad: 7.00 Aov Mn Grad: 4.00 KINZA Cont.VTI: 2.54 LVOT LVOT Pk Bret: 1.07 LVOT Mn Bret: 0.76 LVOT VTI: 0.21 LVOT Pk Grad: 5.00 LVOT Mn Grad: 3.00 LVOT Diam: 2.00 LVOT Area: 3.14 Diastolic Function MV Pk E: 0.93 MV Pk A: 0.67 E/A: 1.40 E'Medial: 10.00 E/E' Med: 9.30 E' Laterial: 15.40 E/E' Lat: 6.00 Right Ventricle TAPSE (mm): 20.30 TVS' Bret: 11.40 Tricuspid Valve TR Pk Bret: 2.29 TR Pk Grad: 21.00 RA Press: 3.00 RVSP: 24.00 Great Vessels Aorta Ao Root-2D: 2.80 2.0-3.7 cm Ao Asc: 2.80 2.1-3.4 cm Ao Arch: 2.30 Updated in Other Vendor System with Status of Final Pawel La MD electronically signed on 09/06/2024 4:32:07 PM with status of Final
== END ==
LOC: HO.CARD 09:43
PROVIDERS: PCP Internal Medicine; Visit Provider Internal Medicine
DX: R79.89 Other specified abnormal findings of blood chemistry (principal)
CPT/HCPCS: 93306

== ENCOUNTER → 2024-09-05 09:47 | Outpatient (BNV) | payer MEDICARE, MEDICAID, SELFPAY | PROVIDERS: PCP Internal Medicine; Visit Provider Internal Medicine Cardiovascular Disease | DX: R00.0 Tachycardia, unspecified (principal); R79.89 Other specified abnormal findings of blood chemistry | CPT/HCPCS: 93306 ==

== ENCOUNTER 2025-01-29 09:30 | Outpatient (REF) | payer MEDICARE, MEDICAID, SELFPAY ==
--- OUTSIDE RECORDS SUMMARY | 2025-01-29 10:29 | XMS_ITS | Clinical Summary ---
Author Organization [facility] Address [address] [place] [address] Care Team Providers Care Private Secretary Name Role Phone Physician, No Pcp Primary Care Provider Unavaila ble Allergies No known active allergies Medications calcium carbonate (CALCIUM 500 ORAL) Take 1 tablet by mouth daily. Active cloNIDine (CATAPRES) 0.1 mg tablet Take 0.1 mg by mouth 3 times daily (with meals). Active LORazepam (ATIVAN) 2 mg tablet Take 2 mg by mouth every 6 hours as needed. Active metFORMIN XR (GLUCOPHAGE-XR) 750 mg 24 hr tablet Take 750 mg by mouth Daily before dinner. Active omega-3 acid ethyl esters (LOVAZA) 1 gram capsule Take 2 tablets by mouth daily. Active topiramate (TOPAMAX) 100 mg tablet Take 100 mg by mouth 2 times daily. Active ergocalciferol (VITAMIN D-2) 1,250 mcg (50,000 unit) capsule Take 50,000 Units by mouth once a week. 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 DX:Mental retardation associ ated with Fragile X syndrome Masturbation 12/16/2016 Family History Medical History Relation Name Comments Stomach cancer Mother Relation Name Status Comments Mother biological mom Social History Tobacco Use Types Packs/Day Years Used Date Smoking Tobacco: Never Smokeless Tobacco: Never Alcohol Use Standard Drinks/Week Comments No 0 (1 standard drink = 0.6 oz pur e alcohol) Comments Unknown Sex and Gender Information Value Date Recorded Sex Assigned at Not on file Legal Sex Female 9:04 AM EST Gender Identity Not on file Sexual Orientation Not on file Obstetrics History Last Filed Vital Signs Vital Sign Reading Time Taken Comments Blood Pressure 109/73 01/20/2024 9:43 AM EDT Pulse 104 01/20/2024 9:43 AM EDT Temperature - - Respiratory Rate - - Oxygen Saturation - - Inhaled Oxygen Concentration - - Weight 85.7 kg (189 lb) 01/20/2024 9:43 AM EDT Height 162.6 cm (5' 4 ) 01/20/2024 9:43 AM EDT Body Mass Index 32.44 01/20/2024 9:43 AM EDT Plan of Treatment Upcoming Encounters Date Type Department Care Team (Late st Contact Info) Description 02/11/2025 1:30 PM EDT Office Visit Obstetrics & Gynecology - [facility] [address] [place] [address] Ashlee Vences CNM [address] [place] [address] Health Maintenance Due Date Last Done Comments DTaP,Tdap,and Td Vaccines (1 - Tdap) 2013 Hepatitis B Vaccines (1 of 3 - 19+ 3-dose series) 2013 Depression Screening 09/04/2022 HIV Screening 09/04/2022 Medicare Annual Wellness Visit 09/04/2022 Social Influencers of Health Screening 09/04/2022 COVID-19 Vaccine (1 - 2023-2 5 season) 2024 Influenza Vaccine (Season Ended) 2025 Cervical Cancer Screening: HPV 11/03/2025 11/03/2020 Cholesterol Screening (Lipid Panel) 11/03/2025 11/03/2020 Hepatitis C Screening Completed 12/16/2016 HIB Vaccines Aged Out No longer eligi ble based on patient's age to complete this topic HPV Vaccines Aged Out No longer eligi ble based on patient's age to complete this topic Hepatitis A Vaccines Aged Out No long er eligible based on patient's age to complete this topic IPV Vaccines Aged Out No longer eligi ble based on patient's age to complete this topic MMR Vaccines Aged Out No longer eligi ble based on patient's age to complete this topic Meningococcal ACWY Vaccine Aged Out N o longer eligible based on patient's age to complete this topic Meningococcal B Vaccine Aged Out No l onger eligible based on patient's age to complete this topic Pneumococcal Vaccine: Pediat rics (0 to 5 Years) and At-Risk Patients (6 to 64 Years) Aged Out No longer eligi ble based on patient's age to complete this topic RSV Immunization Patients Un ginny 20 months Aged Out No longer eligible b ased on patient's age to complete this topic Varicella Vaccines Aged Out No longer eligible based on patient's age to complete this topic Procedures Procedure Name Priority Date/Time Associated Diagnosis Comments HPV Routine 11/03/2020 LIPID PANEL Routine 11/03/2020 HEPATITIS C SCREENING Routine 12/16/2016 from Last 3 Months or Most Recently Relevant to Health Maintenance Results * Cervical Cancer Screening: HPV (11/03/2020) [facility] Cervical Cancer Screening: HPV No Interpretation , Abstracted [facility] Provider HEALTH MAINTENANCE Final Result * (ABNORMAL) Lipid panel (11/03/2020) [facility] LDL/HDL Ratio 5(A) 0 - 4 Triglycerides 172(A) 0 - 150 mg/dL Cholesterol 222(A) 0 - 200 mg/dL HDL 42 >=40 mg/dL LDL Cholesterol 146(A) 0 - 100 mg/dL Blood Venous blood specimen / Unknown [facility] Provider LAB BLOOD ORDERABLES Mariajose l Result * Hepatitis C Screening (12/16/2016) [facility] Hepatitis C Screening Abstracted [facility] Provider HEALTH MAINTENANCE Final Result from Last 3 Months or Most Recently Relevant to Health Maintenance Insurance MEDICARE MEDICAID - [place] Care Teams Private Secretary Relationship Specialty Start Date End Date Physician, No Pcp PCP - General 11/23/24
[2025-01-29 11:12] LABS: Valproate 80.9 mcg/mL (50.0-100.0)
[2025-01-29 11:24] LABS: Alanine Aminotransferase 10 U/L (0-31); Albumin Level 3.8 g/dL (3.5-5.0); Alkaline Phosphatase 64 U/L (39-117); Aspartate Amino Transferase 18 U/L (5-31); Bilirubin Direct 0.1 mg/dL (0.0-0.5); Bilirubin Total 0.3 mg/dL (0.0-1.0); Total Protein 7.2 g/dL (6.5-8.0)
== END 2025-01-29 09:31 | disposition home or self-care (01) ==
LOC: HO.LAB 09:30
PROVIDERS: PCP Internal Medicine; Visit Provider General Practice
DX: Z79.899 Other long term (current) drug therapy (principal); F06.8 Other specified mental disorders due to known physiological condition
CPT/HCPCS: 36415; 80076; 80164

== ENCOUNTER 2025-07-17 08:46 | Outpatient (AMB) | payer MEDICARE, MEDICAID, SELFPAY ==
--- NOTE | 2025-07-17 08:54 | MHC.PC.OV ---
Vital Signs 07/17/25 08:55 07/17/25 09:35 Height 5 ft 2 in Weight 176 lb 2 oz BMI 32.2 BP 140/82 H 130/80 Blood Pressure Location Lt brachial Lt brachial Position Sitting Sitting Pulse 97 Pulse Source Pulse Oximeter Temp 97.1 F Temp Source Temporal Artery Scan Pulse Oximetry (%) 98 Oxygen Delivery Method Room Air Intake Visit Reasons: Annual Exam Intake Note: Patient is here today for a physical. Sanitation Inspector Required: No Prop Cutter: Present (Mother and HOME HEALTH CLINICAL LIAISON) Accompanied by: Mother Allergies No Known Allergies Allergy (Verified 07/17/25 09:22) Medication List - Last Reconciled 07/17/25 by Ivelisse Stout MD albuterol sulfate 2.5 mg (3 mL) inhalation Q4-6H PRN 30 days alcohol swabs (Alcohol Prep Pads) 1 pad topical DAILY 90 days atorvastatin 20 mg PO BEDTIME 90 days benzoyl peroxide 5% 1 appl topical DAILY calcium carbonate 500 mg PO BID 90 days cetirizine 10 mg PO DAILY PRN 90 days cholecalciferol (vitamin D3) 125 mcg PO QWEEK 90 days cyanocobalamin (vitamin B-12) 1,000 mcg PO DAILY 90 days divalproex ER 500 mg PO DAILY divalproex ER 250 mg PO DAILY fluticasone propionate 50 mcg/actuation 1 spray intranasal DAILY lactulose 10 grams (15 mL) PO BEDTIME PRN 30 days metformin 500 mg PO DAILY 90 days nebulizers (AeroEclipse II Nebulizer) As directed omeprazole 20 mg PO DAILY sennosides (senna) 8.6 mg PO BEDTIME PRN 90 days Tobacco use date assessed: 07/17/25 Dental Screening Dental Screen Date: 07/17/25 Did you have a dental visit in the last 12 months?: Yes Did you have a dental problem in the last 6 months where you did not have access to dental care?: No Was dental information given to patient?: Patient has dentist HPI HPI Comments History of Present Illness Details The patient is a 30-year-old female presenting for an annual physical examination. She has a history of Polycystic Ovary Syndrome (PCOS) for which she is taking metformin, not for diabetes management but specifically for PCOS. She also reports taking divalproex for an unspecified condition, with a dosage of one 500 mg tablet and one 250 mg tablet. The patient experiences constipation and is using a senna-based treatment, which she finds effective. Additionally, she takes omeprazole for gastroesophageal reflux disease (GERD). Her blood pressure was noted to be slightly elevated during this visit, although it is usually well-controlled. The patient has a history of ear surgery, though further details were not discussed. She has severe autism and is nonverbal, which was noted during the visit. [facility] Medical History Edema of right foot Edema of left foot Obesity (BMI 30-39.9) Asthma Fragile-X syndrome B12 deficiency Vitamin D deficiency PCOS (polycystic ovarian syndrome) Surgical History History of ear surgery Family History Mother Stomach cancer Father AA (alcohol abuse) Social History Housing: Apartment Alcohol intake: never Patient Tobacco Use Status: Never used Tobacco e-Cigarette/Vaping Use: Never Used Second Hand Smoke Exposure: No service: No Current occupational status: disabled Cognitive needs: Yes Hearing needs: No Vision needs: Yes Questionnaire PHQ-9 Over the last 2 weeks, how often have you been bothered by any of the following problems? 1. Little interest or pleasure in doing things: not at all 2. Feeling down, depressed, or hopeless: not at all 3. Trouble falling or staying asleep, or sleeping too much: not at all 4. Feeling tired or having little energy: not at all 5. Poor appetite or overeating: not at all 6. Feeling bad about yourself - or that you are a failure or have let yourself or your family down: not at all 7. Trouble concentrating on things, such as reading the newspaper or watching television: not at all 8. Moving or speaking so slowly that other people could have noticed. Or the opposite - being so fidgety or restless that you have been moving around a lot more than usual: not at all 9. Thoughts that you would be better off or of hurting yourself in some way: not at all Total score: 0 Depression Screening Interpretation: Negative Depression Screening Done: Yes 64614 - PHQ-9 Billing: Yes Source: Developed by Drs. Willard Henry, Josue Nino and colleagues, with an educational greg from [email or web address]. Thrive Questionnaire Date Thrive assessed: 01/04/23 I am a: Parent/Caregiver What is your living situation today?: I have a steady place to live Within the past 12 months, did the food you bought not last and you didn't have the money to get more?: Never true Within the past 12 months, did you worry whether your food would run out before you got money to buy more?: Never true Do you have trouble paying for medicines?: No Do you have trouble getting transportation to medical appointments?: No Do you have trouble paying your heating and electricity bill?: No Do you have trouble taking care of your child, family member or friend?: No Do you have trouble with day-to-day activities such as bathing, preparing meals, shopping, managing finances, etc.?: No Are you currently unemployed and looking for a job?: No Are you interested in more education?: No Please select the resources that you would like help with: None Currently or been in a relationship where the following occur: No concerns reported THRIVE Score: 0 AUDIT C Alcohol Use Questionnaire (AUDIT-C) 1. How often do you have a drink containing alcohol?: Never Total Score: 0 Score Reviewed/Action Taken: No OSCAR-7 AMB Questionnaire OSCAR-7 Date OSCAR - 7 assessed: 07/10/24 Feeling nervous, anxious, or on edge: 0 = Not at all Not being able to stop or control worryin = Not at all Worrying too much about different things: 0 = Not at all Trouble relaxin = Not at all Being so restless that it is hard to sit still: 0 = Not at all Becoming easily annoyed or irritable: 0 = Not at all Feeling afraid as if something awful might happen: 0 = Not at all Total OSCAR-7 score (0-4 normal; 5-9 mild; 10-14 moderate; 15-21 severe): 0 Source: Developed by Vivian Rosas Kurt Kroenke and colleagues, with an educational greg from [email or web address]. OSCAR-7 Assessment Billing OSCAR-7 Assessment Tool: OSCAR-7 Assessment 78283 Review of Systems Const All systems reviewed & are unremarkable except as noted in HPI and below Card Denies chest pain at rest, Denies chest pain with activity, Denies edema, Denies irregular heart rhythm, Denies claudication, Denies dyspnea, Denies dyspnea on exertion, Denies orthopnea, Denies paroxysmal nocturnal dyspnea and Denies slow heart rate Resp Denies cough, Denies dyspnea and Denies dyspnea on exertion GI Denies abdominal pain, Denies change in bowel habits, Denies excessive flatus, Denies nausea and Denies vomiting Denies urinary incontinence, Denies urinary hesitancy and Denies urinary urgency Musc Denies atrophy, Denies deformity and Denies limited range of motion Skin/Breast Denies bleeding lesions, Denies changing lesions and Denies rash Physical exam (Primary Care) Vital Signs: Last Vital Signs Temp 97.1 F 07/17/25 08:55 Pulse 97 07/17/25 08:55 BP 130/80 07/17/25 09:35 Pulse Ox 98 07/17/25 08:55 Oxygen Delivery Method Room Air 07/17/25 08:55 BMI result Body Mass Index 32.2 BMI Assessment/Plan discussion: High BMI High, discussed plan: lifestyle, weight reduction, dietary and physical activity Tobacco/Smoking Status: Tobacco use Status Tobacco use date assessed 07/17/25 07/17/25 09:02 Patient Tobacco Use Status Never used Tobacco 07/17/25 08:54 e-Cigarette/Vaping Use Never Used 07/17/25 08:54 PHQ-9: PHQ-9 Score PHQ-9: Total score 0 07/17/25 09:55 Depression Screening Interpretation: Negative Thrive Assessment: Date of Thrive Assessment Date Thrive assessed 01/04/23 07/17/25 08:54 Currently or been in a relationship where the following occur: No concerns reported HENMT Head: Yes normal to inspection, Yes normocephalic and Yes atraumatic Ears: external ears normal Eyes General: appearance normal, both eyes and all related structures Eyelids: Yes eyelids normal Conjunctivae: conjunctivae normal Neck Neck: Yes normal visual inspection and Yes supple Resp Effort & Inspection: normal respiratory effort Auscultation: clear to auscultation bilaterally Cardio Jugular venous distension: no JVD Rate: regular rate Rhythm: regular rhythm Heart sounds: S1 normal heart sound present and S2 normal heart sound present GI Inspection: Yes normal to inspection Palpation (GI): Soft to palpation and nontender Auscultation: normal bowel sounds Skin General skin exam: no rashes or lesions noted Neuro General: no focal motor deficits Extrem General: Yes full ROM Psych Appearance: grossly normal Office Procedures Flu Questionnaire Does the patient have a severe egg allergy?: No Does the patient have severe life threatening allergies?: No Does the patient have a fever or illness today?: No Has the patient ever had Guillain-[place] Syndrome?: No Has the patient ever had any past reaction to a flu shot?: No Immunizations Fluarix [id number] (PF) 45 mcg (15 mcg x 3)/0.5 mL IM syringe Performing Provider: Ivelisse Stout MD [facility] Administered by: Kellen Estrada RN on 07/17/25 09:55 Dose Route Admin Location Dispensed Lot Number Expiration Date [facility] Brake Repairer Bus 0.5 mL IM Right Deltoid 0.5 mL [id number] 03/25/26 [id number] [employer] VIS Given Date VIS Provided VIS Publication Date 07/17/25 Single Vaccine 24 Eligibility Eligibility Date Funding Source Not [facility] Eligible 07/17/25 Private Coding Level of Care Code Est Pt Prev Care 18-39y(80732) Diagnoses Physical exam Z00.00 Mood disorder F39 Additional Codes OSCAR-7 Assessment Billing - OSCAR-7 Assessment Tool: OSCAR-7 Assessment 88034 ([id number]) PHQ-9 - 73941 - PHQ-9 Billing: Yes ([id number]) Time Spent (min) 30 Assessment & Plan Assessment & Plan (1) Physical exam: Code(s): Z00.00 - Encounter for general adult medical examination without abnormal findings Category: Medical (2) Mood disorder: Code(s): F39 - Unspecified mood [affective] disorder Category: Medical Plan Plan 1. Encounter for general adult medical examination without abnormal findings Z00.00 Repeat in a year. Orders: Orders Vitamin B12 and Folate Today E53.8 - Deficiency of other specified B group vitamins Lipid Panel Today E78.5 - Hyperlipidemia, unspecified Comprehensive [place]. Panel Fast Today Z00.00 - Encounter for general adult medical examination without abnormal findings Complete Blood Count Auto Diff Today F39 - Unspecified mood [affective] disorder Influenza 2484-1201 Immunization Today Z23 - Encounter for immunization Vitamin D 25-OH Total Today E55.9 - Vitamin D deficiency, unspecified Medications: Refilled cyanocobalamin (vitamin B-12) 1,000 mcg PO DAILY 90 tabs 1RF 90 days cholecalciferol (vitamin D3) 125 mcg PO QWEEK 13 caps 1RF 90 days
[2025-07-17 08:55] VITALS: BP 140/82; PULSE 97; TEMP 36.2; O2SAT 98; BMI 32.2
[2025-07-17 09:35] VITALS: BP 130/80
== END 2025-07-17 10:03 | disposition home or self-care (01) ==
LOC: HO.HMCH 08:47
PROVIDERS: PCP Internal Medicine; Visit Provider Internal Medicine
DX: Z00.00 Encounter for general adult medical examination without abnormal findings (principal); F39 Unspecified mood [affective] disorder; Z23 Encounter for immunization

== ENCOUNTER → 2025-07-17 08:46 | Outpatient (BNVA) | payer MEDICARE, MEDICAID, SELFPAY | PROVIDERS: PCP Internal Medicine; Visit Provider Internal Medicine | DX: Z00.00 Encounter for general adult medical examination without abnormal findings (principal); E28.2 Polycystic ovarian syndrome; K59.00 Constipation, unspecified; R03.0 Elevated blood-pressure reading, without diagnosis of hypertension; F84.0 Autistic disorder; Z23 Encounter for immunization | CPT/HCPCS: 90471; 90656; 96127; 99395 ==

== ENCOUNTER 2025-09-02 10:53 | Outpatient (REF) | payer MEDICARE, MEDICAID, SELFPAY ==
[2025-09-02 11:11] LABS: MANUAL DIFF FLAG NO
[2025-09-02 12:00] LABS: Hematocrit 42.5 % (37.0-47.0); Hemoglobin 13.7 g/dl (12.0-16.0); Imm Gran Abs Auto 0.02 X10*3/uL (0.00-0.03); Imm Gran Pct Auto 0.3 % (0.0-0.4); Lymphocytes Absolute Auto 1.6 X10*3/uL (1.2-4.9); Mean Corpuscular HGB Conc 32.2 g/dl (31.0-35.0); Mean Corpuscular Hemoglobin 29.8 pg (27.0-33.0); Mean Corpuscular Volume 92.4 fL (80.0-98.0); NRBC Abs Auto 0.000 X10*3/uL (0.0-0.012); NRBC Pct Auto 0.0 /100WBC (0.0-0.2); Platelet Count 209 X10*3/uL (160-400); Red Blood Count 4.60 X10*6/uL (4.20-5.50); White Blood Count 6.8 X10*3/uL (4.8-10.8)
[2025-09-02 12:48] LABS: Alanine Aminotransferase 14 U/L (0-31); Albumin Level 4.3 g/dL (3.5-5.0); Alkaline Phosphatase 62 U/L (39-117); Anion Gap 11 (12-20); Aspartate Amino Transferase 24 U/L (5-31); Blood Urea Nitrogen 11 mg/dL (9-16); Calcium 9.4 mg/dL (8.4-10.2); Carbon Dioxide 22 mmol/L (22-29); Chloride 111 mmol/L (96-108); Cholesterol 173 mg/dL (<200); Estimated Glomerular Filt Rate > 60; HDL Cholesterol 39 mg/dL (>40); Potassium 4.0 mmol/L (3.3-5.1); Sodium 140 mmol/L (135-145); Total Protein 7.6 g/dL (6.5-8.0); Triglycerides 129 mg/dL (<150)
[2025-09-02 13:01] LABS: Folate 6.6 ng/mL (> or = 4.0); Vitamin B12 495 pg/mL (200-900)
== END 2025-09-02 10:54 | disposition home or self-care (01) ==
LOC: HO.LAB 10:53
PROVIDERS: PCP Internal Medicine; Visit Provider Internal Medicine
DX: Z00.00 Encounter for general adult medical examination without abnormal findings (principal); E53.8 Deficiency of other specified B group vitamins; E78.5 Hyperlipidemia, unspecified; F39 Unspecified mood [affective] disorder; E55.9 Vitamin D deficiency, unspecified
CPT/HCPCS: 36415; 80053; 80061; 82306; 82607; 82746; 85025